=== PATIENT | female | born 1995 | race Caucasian/White ===

== ENCOUNTER 2017-03-29 11:14 | Outpatient (CLI) | payer OTHER ==
--- NOTE | 2017-03-29 12:39 | Ultrasound Report ---
DATE OF SERVICE: 03/29/2017 PELVIC ULTRASOUND: 03/29/2017 CLINICAL INDICATION: Pelvic pain, family history of ovarian cancer in a first degree relative. TECHNIQUE: Transabdominal pelvic ultrasound performed for global evaluation. Transvaginal pelvic ultrasound performed for detailed evaluation. Real-time scanning performed and static images obtained. FINDINGS: The uterus is anteverted, measuring 7.0 x 4.6 x 3.5 cm. The endometrial echo complex measures 8 mm. No focal myometrial lesion is present. The ovaries are normal, with the right measuring 2.5 x 1.9 x 1.6 cm and the left measuring 2.0 x 1.3 x 1.3 cm. No free fluid is present. IMPRESSION: Normal pelvic ultrasound. TD: 03/29/2017 13:38
== END 2017-03-29 11:15 | disposition home or self-care (01) ==
LOC: DI 11:14
PROVIDERS: ATTEND Physician Assistant Medical
DX: R10.2 Pelvic and perineal pain (principal); Z80.41 Family history of malignant neoplasm of ovary
CPT/HCPCS: 76830; 76856